=== PATIENT | female | born 1930 | race Caucasian/White ===

== ENCOUNTER 2017-07-19 22:31 | Inpatient (IN) | payer MEDICARE, OTHER ==
[~2017-07-19] VITALS: Ht 157.5 cm; Wt 80.8 kg
[2017-07-19] MEDS ORDERED: SODIUM CHLORIDE 0.9% 1000ML 1,000 ML IV STA (23:09)
[2017-07-19] MEDS ORDERED: MORPHINE SULFATE 2 MG/ML SYR IV STA (23:09)
[2017-07-19] MEDS ORDERED: ONDANSETRON HCL INJ 2 MG/ML VIAL IV STA (23:09)
[2017-07-19] MEDS ORDERED: VANCOMYCIN 1GM/NS 250 ML 250 ML IV STA (23:15)
[2017-07-19 23:21] LABS: BASOPHILS % 0.2 % (0.0-1.0); HEMATOCRIT 39.6 % (34.2-44.1); HEMOGLOBIN 13.7 g/dL (12.0-16.0); LYMPHOCYTES % 6.7 % (18.0-39.1); MEAN CORPUSCULAR HEMOGLOBIN 31.4 pg (28-32); MEAN CORPUSCULAR HGB CONC 34.6 g/dL (31-35); MEAN CORPUSCULAR VOLUME 90.8 fL (81-99); MONOCYTES # (AUTO) 0.7 (0.2-0.8); MONOCYTES % 4.7 % (4.4-11.3); NEUTROPHILS # (AUTO) 13.5 (2.1-6.9); NEUTROPHILS % 87.9 % (38.7-80.0); PLATELET COUNT 257 x10e3/uL (140-360); RED BLOOD COUNT 4.36 x10e6/uL (3.6-5.1); RED CELL DISTRIBUTION WIDTH 15.5 % (11.7-14.4)
[2017-07-19 23:23] LABS: BILIRUBIN,URINE NEGATIVE (NEGATIVE); KETONES,URINE TRACE (NEGATIVE); LEUKOCYTE ESTERASE ,URINE 1+ (NEGATIVE); NITRITE,URINE NEGATIVE (NEGATIVE); PROTEIN,URINE DIPSTICK NEGATIVE (NEGATIVE); URINE UROBILINOGEN 0.2 mg/dL (0.2 - 1)
[2017-07-19 23:24] LABS: CLARITY,URINE CLEAR (CLEAR); COLOR,URINE YELLOW (YELLOW)
[2017-07-19 23:25] LABS: PROTHROMBIN TIME 12.4 seconds (11.9-14.5)
[2017-07-19 23:26] LABS: PARTIAL THROMBOPLASTIN TIME 26.3 seconds (23.8-35.5)
[2017-07-19 23:33] LABS: ALBUMIN 3.7 g/dL (3.5-5.0); ALBUMIN/GLOBULIN RATIO 1.1 (0.8-2.0); ANION GAP 12.9 mmol/L (8-16); BACTERIA,URINE RARE /HPF; CALCIUM 8.8 mg/dL (8.4-10.2); CREATININE, SERUM 0.96 mg/dL (0.57-1.11); EPITHELIAL CELLS,URINE MODERATE /LPF; MAGNESIUM 1.5 MG/DL (1.3-2.1); MUCUS,URINE FEW (RARE); POTASSIUM 3.9 mmol/L (3.5-5.1)
[2017-07-19 23:40] LABS: CREATINE KINASE MB 0.7 ng/mL (0-5.0)
[2017-07-19 23:41] LABS: B-TYPE NATRIURETIC PEPTIDE2 46.8 pg/mL (0-100)
[2017-07-19] MEDS ORDERED: PIPER-TAZ 3.375 GM 50 ML IV SCH (23:45)
[2017-07-19] MEDS ORDERED: LOSARTAN POTAS100 MG PO (23:58)
[2017-07-20] VITALS (8 sets, daily range): BP systolic 117–146; BP diastolic 57–70
--- NOTE | 2017-07-20 00:12 | Diagnostic Imaging Report ---
LOWER LEG LEFT Comparison: None Clinical history: \S\LEFT LEG CELLULITIS CAT BITE 3 DAYS AGO \[id number] \S\[id number] Findings: Mild diffuse soft tissue swelling. No bony destruction or fracture. Punctate mineralization or calcific density is seen anterior to the mid tibia. Degenerative changes are noted about the knee. Impression: No acute bony abnormality or radiopaque foreign body. Signed by: Dr Xin Tuttle MD on 07/20/2017 12:08 AM
--- NOTE | 2017-07-20 00:13 | Diagnostic Imaging Report ---
CHEST SINGLE (PORTABLE), 07/19/2017 11:09 PM Technique: CHEST SINGLE (PORTABLE) Comparison: None available. Clinical history: \S\LEFT LEG CELLULITIS CAT BITE ADMIT \[id number] \S\[id number] Findings: Cardiac silhouette within normal limits for portable technique. Mildly tortuous aorta with atherosclerotic calcification. Mild bibasilar/infrahilar opacity. No pleural effusion or pneumothorax. Impression: Mild bibasilar/infrahilar vascular crowding or atelectasis. Signed by: Dr Xin Tuttle MD on 07/20/2017 12:10 AM
[2017-07-20] MEDS ORDERED: MORPHINE SULFATE 2 MG/ML SYR IV PRN (00:45)
[2017-07-20] MEDS ORDERED: ONDANSETRON HCL INJ 2 MG/ML VIAL IV PRN (00:45)
[2017-07-20] MEDS: SODIUM CHLORIDE 0.9% 1000ML 1,000 ML IV SCH ×2 (00:58→10:41)
[2017-07-20] MEDS: PIPER-TAZ 3.375 GM 50 ML IV SCH ×4 (06:23→23:17)
[2017-07-20] MEDS: LOSARTAN POTASSIUM 100 MG TAB PO SCH (09:42)
[2017-07-20] MEDS ORDERED: VANCOMYCIN 1GM/NS 250 ML 250 ML IV SCH (12:00)
[2017-07-20] MEDS: VANCOMYCIN 1GM/NS 250 ML 250 ML IV SCH (18:45)
[2017-07-20] MEDS ORDERED: SODIUM CHLORIDE 0.9% 250ML 250 ML ONE (23:12)
[2017-07-21] VITALS (8 sets, daily range): BP systolic 131–178; BP diastolic 53–93
[2017-07-21] MEDS: PIPER-TAZ 3.375 GM 50 ML IV SCH ×4 (05:23→23:33)
[2017-07-21] MEDS ORDERED: BISACODYL 5 MG TAB EC PO SCH (05:45)
[2017-07-21] MEDS ORDERED: ACETAMINOPHEN 325 MG TAB PO PRN (06:00)
[2017-07-21] MEDS: VANCOMYCIN 1GM/NS 250 ML 250 ML IV SCH ×2 (06:11→17:37)
[2017-07-21 07:14] LABS: BASOPHILS % 0.4 % (0.0-1.0); EOSINOPHILS # (AUTO) 0.1 (0.0-0.4); EOSINOPHILS % 0.8 % (0.0-6.0); HEMATOCRIT 32.4 % (34.2-44.1); HEMOGLOBIN 10.6 g/dL (12.0-16.0); LYMPHOCYTES # (AUTO) 1.8 (1.0-3.2); LYMPHOCYTES % 16.7 % (18.0-39.1); MEAN CORPUSCULAR HEMOGLOBIN 30.6 pg (28-32); MEAN CORPUSCULAR HGB CONC 32.7 g/dL (31-35); MEAN CORPUSCULAR VOLUME 93.6 fL (81-99); MONOCYTES # (AUTO) 0.8 (0.2-0.8); MONOCYTES % 7.3 % (4.4-11.3); NEUTROPHILS # (AUTO) 7.8 (2.1-6.9); NEUTROPHILS % 74.3 % (38.7-80.0); PLATELET COUNT 204 x10e3/uL (140-360); RED BLOOD COUNT 3.46 x10e6/uL (3.6-5.1); RED CELL DISTRIBUTION WIDTH 15.9 % (11.7-14.4)
[2017-07-21 07:41] LABS: ALANINE AMINOTRANSFERASE 12 IU/L (0-55); ALBUMIN 2.6 g/dL (3.5-5.0); ALBUMIN/GLOBULIN RATIO 0.8 (0.8-2.0); ALKALINE PHOSPHATASE 40 IU/L (40-150); ANION GAP 6.8 mmol/L (8-16); BLOOD UREA NITROGEN 13 mg/dL (7-26); BUN/CREATININE RATIO 15 (6-25); CALCIUM 8.2 mg/dL (8.4-10.2); CARBON DIOXIDE 28 mmol/L (22-29); CHLORIDE 106 mmol/L (98-107); CREATININE, SERUM 0.85 mg/dL (0.57-1.11); EST GLOMERULAR FILTRATION RATE > 60 ML/MIN (60-); GLUCOSE 119 mg/dL (74-118); POTASSIUM 3.8 mmol/L (3.5-5.1); SODIUM 137 mmol/L (136-145)
[2017-07-21] MEDS: LOSARTAN POTASSIUM 100 MG TAB PO SCH (08:45)
[2017-07-21] MEDS: BISACODYL 5 MG TAB EC PO SCH ×2 (12:00→17:38)
[2017-07-21] MEDS ORDERED: TETANUS/DIPHTHERIA TOX ADULT 0.5 ML SYR IM NR (15:00)
--- NOTE | 2017-07-21 15:18 | Consultation ---
DATE OF CONSULTATION: REASON FOR CONSULTATION: Cellulitis of the right leg, cat bite. Thank you so much for asking me to see this patient. HISTORY OF PRESENT ILLNESS: This patient, who is an 87-year-old female, comes to the hospital with redness and swelling of her leg that took place after a cat bite. It was her cat. The bite was on the leg 4 days ago, and she started to have redness and swelling involving the whole leg so the patient came to the hospital. Patient is being admitted, and infectious disease was consulted. She is currently lying in bed comfortably. PAST MEDICAL HISTORY: Significant for cat bite with cellulitis a few years ago. PAST SURGICAL HISTORY: She denies. ALLERGIES: NKA. SOCIAL HISTORY: There is no smoking, drug abuse or alcohol abuse. FAMILY HISTORY: Otherwise unremarkable. REVIEW OF SYSTEMS HEENT: There is no headache, visual changes, hearing changes. GI: There is no nausea, no vomiting, no diarrhea. CARDIAC: There is no arrhythmia or chest pain. NEURO: No seizure activity or focal weakness. SKIN: There are no other rashes. PHYSICAL EXAMINATION GENERAL: She is currently alert and oriented, does not seem to be in acute distress. VITALS: Stable, currently afebrile. HEENT: Normocephalic. NECK: Supple. No JVD. No lymphadenopathy or thyromegaly. CHEST: Clear bilaterally. COR: S1 and S2. No S3 or S4. No murmur. ABDOMEN: Soft. Bowel sounds present. No tenderness. EXTREMITIES: The leg has erythema. There is edema involving the whole leg from the ankle to below the knee. The cat bite site noted. IMPRESSION: Cellulitis of leg after a cat bite. Agree with Zosyn and vancomycin. Keep the leg elevated. Will give her a booster for tetanus and diphtheria. Will follow. Further recommendations depending on clinical progress. Thank you for asking me to see this patient. Job#: [id number]
[2017-07-22] VITALS (8 sets, daily range): BP systolic 124–168; BP diastolic 65–94
[2017-07-22] MEDS: BISACODYL 5 MG TAB EC PO SCH ×4 (00:59→18:00)
[2017-07-22] MEDS: PIPER-TAZ 3.375 GM 50 ML IV SCH ×4 (05:15→22:36)
[2017-07-22] MEDS: LOSARTAN POTASSIUM 100 MG TAB PO SCH ×2 (05:42→09:00)
[2017-07-22] MEDS: VANCOMYCIN 1GM/NS 250 ML 250 ML IV SCH ×2 (06:00→18:00)
[2017-07-22] MEDS ORDERED: SOD PHOSPHATE/SOD BIPHOSPHATE ENEMA 132 ML BTL PR ONE (07:30)
[2017-07-22] MEDS ORDERED: BISACODYL 5 MG TAB EC PO PRN (19:00)
[2017-07-23] VITALS (7 sets, daily range): BP systolic 151–176; BP diastolic 64–85
[2017-07-23] MEDS: PIPER-TAZ 3.375 GM 50 ML IV SCH ×4 (04:39→23:10)
[2017-07-23] MEDS: VANCOMYCIN 1GM/NS 250 ML 250 ML IV SCH ×2 (05:14→18:00)
[2017-07-23] MEDS: LOSARTAN POTASSIUM 100 MG TAB PO SCH (09:00)
[2017-07-23] MEDS ORDERED: ALBUTEROL SULF 0.083% NEB SOLN 3 ML NEB NEB PRN (14:15)
--- NOTE | 2017-07-23 14:59 | Diagnostic Imaging Report ---
EXAMINATION: CHEST 2 VIEWS INDICATION: \S\COUGH RULE OUT PNEMONIA \S\[id number] \S\1430 \S\Y COMPARISON: 07/19/2017 FINDINGS: PA and lateral views TUBES and LINES: None. LUNGS: Lungs are well inflated. Mild central vascular congestion and interstitial edema. No focal consolidation. PLEURA: No pleural effusion or pneumothorax. HEART AND MEDIASTINUM: The cardiomediastinal silhouette is unremarkable. BONES AND SOFT TISSUES: No acute osseous lesion. Degenerative changes of spine. Soft tissues are unremarkable. UPPER ABDOMEN: No free air under the diaphragm. IMPRESSION: Mild vascular congestion and interstitial edema. No definite focal consolidation. Signed by: Dr. Javier Alvarez MD on 07/23/2017 2:55 PM
[2017-07-24] VITALS: BP 170/80
[2017-07-24 04:00] VITALS: BP 161/64
[2017-07-24] MEDS: PIPER-TAZ 3.375 GM 50 ML IV SCH ×3 (05:00→17:00)
[2017-07-24] MEDS: VANCOMYCIN 1GM/NS 250 ML 250 ML IV SCH ×2 (05:26→19:12)
[2017-07-24 07:17] LABS: BASOPHILS % 0.5 % (0.0-1.0); EOSINOPHILS # (AUTO) 0.3 (0.0-0.4); EOSINOPHILS % 4.4 % (0.0-6.0); LYMPHOCYTES # (AUTO) 1.9 (1.0-3.2); LYMPHOCYTES % 26.6 % (18.0-39.1); MEAN CORPUSCULAR HEMOGLOBIN 30.1 pg (28-32); MEAN CORPUSCULAR HGB CONC 32.4 g/dL (31-35); MEAN CORPUSCULAR VOLUME 93.2 fL (81-99); MONOCYTES # (AUTO) 0.7 (0.2-0.8); MONOCYTES % 9.6 % (4.4-11.3); NEUTROPHILS # (AUTO) 4.2 (2.1-6.9); NEUTROPHILS % 58.4 % (38.7-80.0); PLATELET COUNT 243 x10e3/uL (140-360); RED BLOOD COUNT 3.65 x10e6/uL (3.6-5.1); RED CELL DISTRIBUTION WIDTH 15.2 % (11.7-14.4)
[2017-07-24 07:46] VITALS: BP 163/70
[2017-07-24] MEDS: LOSARTAN POTASSIUM 100 MG TAB PO SCH (09:00)
[2017-07-24 12:01] VITALS: BP 174/72
[2017-07-24 16:02] VITALS: BP 169/74
[2017-07-24 20:11] VITALS: BP 179/88
== END 2017-07-24 21:00 | disposition home or self-care (01) | DRG 603 ==
LOC: ER 22:31 → MED/SURG3 07-20 00:50
PROVIDERS: ADMIT Internal Medicine; ATTEND Internal Medicine
DX: L03.116 Cellulitis of left lower limb (principal); N39.0 Urinary tract infection, site not specified; D64.9 Anemia, unspecified; S80.872A Other superficial bite, left lower leg, initial encounter; W55.01XA Bitten by cat, initial encounter; I10 Essential (primary) hypertension; R05 Cough
CPT/HCPCS: 36415; 71045; 71046; 80053; 80202; 81001; 82550; 82553; 83605; 83735; 83880; 84484; 85025; 85610; 85730; 87040; 87071; 87086; 87205; 90714; 96360; 96365; 96374; 99284; J2270; J2405; J2543; J3370; J7030; J7050

== ENCOUNTER → 2020-05-28 | Outpatient (CLI) | payer MEDICARE, OTHER ==
[~2020-05-28] MED LIST: AMITRIPTYLINE H10 MG PO; ASPIRIN81 MG PO; ATORVASTATIN CA40 MG PO; EFFIENT10 MG PO; IOPAMIDOL 370 MG/ML 200 ML INFUS..BTL INJ ONE; LOSARTAN POTAS100 MG PO; SODIUM CHLORIDE 0.9% 50ML 50 ML ONE; ZOFRAN4 MG PO
[2020-05-28 11:22] LABS: CREATININE, SERUM 0.93 mg/dL (0.57-1.11)
== END ==
LOC: CT 10:04
PROVIDERS: ATTEND Surgery
DX: M54.9 Dorsalgia, unspecified (principal); R63.4 Abnormal weight loss; R91.8 Other nonspecific abnormal finding of lung field; R59.9 Enlarged lymph nodes, unspecified; N28.1 Cyst of kidney, acquired; K44.9 Diaphragmatic hernia without obstruction or gangrene; K42.9 Umbilical hernia without obstruction or gangrene
CPT/HCPCS: 36415; 71260; 74178; 82565; 84520; Q9967; U0002

== ENCOUNTER → 2020-06-03 | Day surgery (SDC) | payer MEDICARE, OTHER ==
[2020-05-29 15:04] LABS: BASOPHILS # (AUTO) 0.1 (0.0-0.1); BASOPHILS % 0.8 % (0.0-1.0); EOSINOPHILS # (AUTO) 0.2 (0.0-0.4); EOSINOPHILS % 2.2 % (0.0-6.0); HEMATOCRIT 39.4 % (34.2-44.1); HEMOGLOBIN 12.8 g/dL (12.0-16.0); LYMPHOCYTES # (AUTO) 1.6 (1.0-3.2); LYMPHOCYTES % 18.2 % (18.0-39.1); MEAN CORPUSCULAR HEMOGLOBIN 29.8 pg (28-32); MEAN CORPUSCULAR HGB CONC 32.5 g/dL (31-35); MEAN CORPUSCULAR VOLUME 91.8 fL (81-99); MONOCYTES # (AUTO) 0.9 (0.2-0.8); MONOCYTES % 9.7 % (4.4-11.3); NEUTROPHILS % 68.5 % (38.7-80.0); PLATELET COUNT 326 x10e3/uL (140-360); RED BLOOD COUNT 4.29 x10e6/uL (3.6-5.1); RED CELL DISTRIBUTION WIDTH 16.6 % (11.7-14.4)
[~2020-06-03] MED LIST changes: -IOPAMIDOL 370 MG/ML 200 ML INFUS..BTL INJ ONE; -SODIUM CHLORIDE 0.9% 50ML 50 ML ONE
[2020-06-03 12:35] VITALS: BP 122/68
== END | disposition home or self-care (01) ==
LOC: OR 08:29
PROVIDERS: ATTEND Internal Medicine Gastroenterology
DX: K29.50 Unspecified chronic gastritis without bleeding (principal); K31.7 Polyp of stomach and duodenum; K22.10 Ulcer of esophagus without bleeding; K22.5 Diverticulum of esophagus, acquired; K44.9 Diaphragmatic hernia without obstruction or gangrene; B96.81 Helicobacter pylori [H. pylori] as the cause of diseases classified elsewhere; K59.00 Constipation, unspecified; C25.9 Malignant neoplasm of pancreas, unspecified; C79.9 Secondary malignant neoplasm of unspecified site; I10 Essential (primary) hypertension; E78.5 Hyperlipidemia, unspecified; R59.0 Localized enlarged lymph nodes; F03.90 Unspecified dementia, unspecified severity, without behavioral disturbance, psychotic disturbance, mood disturbance, and anxiety; Z01.810 Encounter for preprocedural cardiovascular examination; Z01.812 Encounter for preprocedural laboratory examination; Z01.818 Encounter for other preprocedural examination; Z79.82 Long term (current) use of aspirin; Z86.73 Personal history of transient ischemic attack (TIA), and cerebral infarction without residual deficits; Z87.891 Personal history of nicotine dependence
CPT/HCPCS: 36415; 43239; 71046; 85025; 88305; 88312; 93005

== ENCOUNTER 2020-06-08 16:34 | Emergency (ER) | payer MEDICARE, OTHER ==
[~2020-06-08] VITALS: Ht 157.5 cm; Wt 80.7 kg
[2020-06-08] MEDS ORDERED: SODIUM CHLORIDE 0.9% 1000ML 1,000 ML IV STA ×3 (16:46→21:30)
[2020-06-08 17:02] LABS: BASOPHILS # (AUTO) 0.1 (0.0-0.1); BASOPHILS % 0.5 % (0.0-1.0); EOSINOPHILS # (AUTO) 0.2 (0.0-0.4); EOSINOPHILS % 1.9 % (0.0-6.0); HEMATOCRIT 28.6 % (34.2-44.1); HEMOGLOBIN 9.7 g/dL (12.0-16.0); LYMPHOCYTES # (AUTO) 2.3 (1.0-3.2); LYMPHOCYTES % 24.7 % (18.0-39.1); MEAN CORPUSCULAR HEMOGLOBIN 31.6 pg (28-32); MEAN CORPUSCULAR HGB CONC 33.9 g/dL (31-35); MEAN CORPUSCULAR VOLUME 93.2 fL (81-99); MONOCYTES # (AUTO) 0.9 (0.2-0.8); MONOCYTES % 9.2 % (4.4-11.3); NEUTROPHILS % 63.1 % (38.7-80.0); PLATELET COUNT 245 x10e3/uL (140-360); RED BLOOD COUNT 3.07 x10e6/uL (3.6-5.1)
[2020-06-08 17:20] LABS: ALBUMIN 2.2 g/dL (3.5-5.0); ALBUMIN/GLOBULIN RATIO 0.8 (0.8-2.0); ANION GAP 12.5 mmol/L (8-16); CALCIUM 7.7 mg/dL (8.4-10.2); CREATININE, SERUM 1.13 mg/dL (0.57-1.11); MAGNESIUM 1.7 MG/DL (1.3-2.1); POTASSIUM 3.5 mmol/L (3.5-5.1)
[2020-06-08 17:21] LABS: INR 0.98; PROTHROMBIN TIME 13.6 seconds (11.9-14.5)
[2020-06-08 17:22] LABS: PARTIAL THROMBOPLASTIN TIME 24.1 seconds (23.8-35.5)
[2020-06-08 17:27] LABS: CREATINE KINASE MB 3.3 ng/mL (0-5.0)
[2020-06-08 17:35] LABS: B-TYPE NATRIURETIC PEPTIDE2 < 10.0 pg/mL (0-100)
[2020-06-08 17:37] LABS: CLARITY,URINE SL CLOUDY (CLEAR); KETONES,URINE TRACE (NEGATIVE); LEUKOCYTE ESTERASE ,URINE NEGATIVE (NEGATIVE); NITRITE,URINE NEGATIVE (NEGATIVE); PROTEIN,URINE DIPSTICK 1+ (NEGATIVE); URINE UROBILINOGEN 8 mg/dL (0.2 - 1)
[2020-06-08 17:38] LABS: COLOR,URINE BROWN (YELLOW)
[2020-06-08 17:54] LABS: BACTERIA,URINE FEW /HPF; EPITHELIAL CELLS,URINE FEW /LPF; RBC,URINE 0-5 /HPF (0-5); WBC,URINE (MAN) 0-5 /HPF (0-5)
[2020-06-08] MEDS ORDERED: PIPER-TAZ 3.375 GM 50 ML IV ONE (18:00)
[2020-06-08 18:27] LABS: AMPHETAMINES SCREEN,URINE NEGATIVE (NEGATIVE); BENZODIAZEPINES SCREEN,URINE NEGATIVE (NEGATIVE); PHENCYCLIDINE SCREEN,URINE NEGATIVE (NEGATIVE)
[2020-06-08] MEDS ORDERED: IOPAMIDOL 370 MG/ML 200 ML INFUS..BTL INJ ONE (18:56)
[2020-06-08] MEDS ORDERED: SODIUM CHLORIDE 0.9% 50ML 50 ML ONE (18:56)
[2020-06-08] MEDS ORDERED: ENOXAPARIN SODIUM INJ 100 MG/ML SYR SC STA (20:06)
[2020-06-08 22:06] VITALS: BP 137/63
== END 2020-06-08 22:09 | disposition other institution (70) ==
LOC: ER 16:57
DX: A41.9 Sepsis, unspecified organism (principal); I26.99 Other pulmonary embolism without acute cor pulmonale; I81 Portal vein thrombosis; C34.90 Malignant neoplasm of unspecified part of unspecified bronchus or lung; N39.0 Urinary tract infection, site not specified; R94.31 Abnormal electrocardiogram [ECG] [EKG]; Z11.52 Encounter for screening for COVID-19; I10 Essential (primary) hypertension; Z86.73 Personal history of transient ischemic attack (TIA), and cerebral infarction without residual deficits
CPT/HCPCS: 36415; 51702; 71045; 71260; 74177; 80053; 80307; 81001; 82150; 82550; 82553; 83605; 83690; 83735; 83880; 84484; 85025; 85610; 85730; 86850; 86900; 87040; 87071; 87086; 87205; 93005; 99284; J1650; J2543; J7030; Q9967; U0002; 51700